=== PATIENT | male | born 1995 ===

== ENCOUNTER 2019-06-20 04:23 | Emergency (ER) | payer MEDICAID ==
[~2019-06-20] VITALS: Ht 172.7 cm; Wt 57.1 kg
[2019-06-20 04:38] VITALS: BP 125/71
[2019-06-20] MEDS ORDERED: ACETAMINOPHEN 325 MG TABLET PO ONE (05:00)
[2019-06-20] MEDS ORDERED: NEOSPORIN OINT. PKT 1 PACKET ONE (05:00)
[2019-06-20] MEDS ORDERED: ACETAMINOPHEN 325 MG TABLET ONE (05:14)
== END 2019-06-20 05:46 | disposition home or self-care (01) ==
LOC: ED 05:41
DX: J02.8 Acute pharyngitis due to other specified organisms (principal); B97.89 Other viral agents as the cause of diseases classified elsewhere
CPT/HCPCS: 87081; 87147; 87880; 99283

== ENCOUNTER 2019-07-01 10:09 | Emergency (ER) | payer MEDICAID ==
[~2019-07-01] VITALS: Ht 175.3 cm; Wt 57.1 kg
--- NOTE | 2019-07-01 10:50 | NUR ---
THIS IS A 24 YO MALE C/O NASAL CONGESTION AND COUGH SINCE ARRIVING IN [place] APPROX 2 WEEKS AGO. PT REPORTS "MY COUGH GETS WORSE WHEN I SMOKE AND IS BETTER WHEN I QUIT." PT AO X 4. SKIN PWD. NO ACUTE DISTRESS NOTED AT THIS TIME. CALL LIGHT WITHIN REACH. WILL CONT TO MONITOR PT.
[2019-07-01 10:56] LABS: BASOPHILS # (AUTO) 0.03 x10^3/uL (0-0.1); BASOPHILS % (AUTO) 0 % (0-1); EOSINOPHILS # (AUTO) 0.06 x10^3/uL (0-0.4); EOSINOPHILS % (AUTO) 1 % (1-7); LYMPHOCYTES # (AUTO) 1.31 x10^3/uL (1-3.4); LYMPHOCYTES % (AUTO) 14 % (22-44); MD NO; MEAN CORPUSCULAR HGB CONC 34.3 g/dL (33.2-36.2); MEAN CORPUSCULAR VOLUME 93.1 fL (81-97); MEAN PLATELET VOLUME 8.5 fL (7.4-10.4); MONOCYTES # (AUTO) 0.78 x10^3/uL (0.2-0.8); MONOCYTES % (AUTO) 9 % (2-9); NEUTROPHILS # (AUTO) 6.94 x10^3/uL (1.8-6.8); NEUTROPHILS % (AUTO) 76 % (42-75); PLATELET COUNT 293 x10^3/uL (130-400); RED BLOOD COUNT 4.88 x10^6/uL (4.38-5.82)
[2019-07-01 11:04] LABS: ALBUMIN 3.6 g/dL (3.4-5.0); ANION GAP 9 mmol/L (5-15); CALCIUM 9.2 mg/dL (8.5-10.1); CHLORIDE 103 mmol/L (98-107); CREATININE 0.78 mg/dL (0.7-1.3)
[2019-07-01 11:39] VITALS: BP 112/71
== END 2019-07-01 11:41 | disposition home or self-care (01) ==
LOC: ED 10:32
DX: B34.9 Viral infection, unspecified (principal); R42 Dizziness and giddiness; F17.200 Nicotine dependence, unspecified, uncomplicated
CPT/HCPCS: 36415; 80048; 82040; 85025; 93005; 99284